=== PATIENT | female | born 1980 | race Caucasian/White ===

== ENCOUNTER 2017-09-12 10:01 | Day surgery (SDC) | END 2017-09-12 15:39 | disposition home or self-care (01) ==

== ENCOUNTER 2018-11-14 15:34 | Emergency (ER) | payer OTHER ==
[~2018-11-14] VITALS: Ht 160 cm; Wt 66.2 kg
[~2018-11-14 15:34] MED LIST: IBUP800T48 PO
[2018-11-14 15:46] VITALS: RESP 18; Ht 160 cm; Wt 66.2 kg
[2018-11-14] MEDS ORDERED: LIDOCAINE 1% (MPF) 5 ML VIAL INFIL ONE (17:00)
[2018-11-14] MEDS ORDERED: DIAZEPAM 5 MG TAB PO ONE (17:00)
[2018-11-14] MEDS ORDERED: CLINDAMYCIN 300 MG INJ IM ONE (17:00)
[2018-11-14] MEDS ORDERED: LORA-441 PO (18:18)
--- NOTE | 2018-11-14 18:22 | ERD ---
ER Documentation Chief Complaint Chief Complaint R ear discomfort with associated dizziness X 3 wks HPI 38-year-old female no significant past medical history presents for dizziness x3 weeks. She states that she has a history of right ear infection a few weeks ago was given some antibiotics which she completed. She states that she still has a right ear discomfort and popping sensation. She states that she had dizziness on and off for about 3 years. She never followed up with her primary care physician or ENT. Denies any fevers or chills. Denies chest pain or shortness of breath. Denies abdominal pain, nausea, vomiting. Patient states that she took some meclizine with only mild relief. Otherwise no other modifying factors noted, no treatments tried at home. ROS All systems reviewed and are negative except as per history of present illness. Medications Home Meds Active Scripts Lorazepam* (Ativan*) 0.5 Mg Tablet, 0.5 MG PO DAILY PRN for dizziness, #10 TAB Prov:AMARI IZAGUIRRE DO 11/14/18 Ibuprofen* (Motrin*) 800 Mg Tab, 800 MG PO Q8 PRN for PAIN AND OR ELEVATED TEMP, #30 TAB Prov:EDMUNDO CAMACHO. ACUPUNCTURIST 01/03/16 Allergies Allergies: Coded Allergies: No Known Allergy (Unverified , 08/14/14) PMhx/Soc History of Surgery: Yes (D&C) Anesthesia Reaction: No Hx Neurological Disorder: No Hx Respiratory Disorders: No Hx Cardiac Disorders: No Hx Psychiatric Problems: Yes (PTSD, ANXIETY, MAJOT DEPRESSION) Hx Miscellaneous Medical Probl: No Hx Alcohol Use: No Hx Substance Use: No Hx Tobacco Use: No Smoking Status: Never smoker Physical Exam Vitals Vital Signs Date Temp Pulse Resp B/P (MAP) Pulse Ox O2 O2 Flow FiO2 Time Delivery Rate 11/14/18 98.1 84 18 116/57 97 15:46 (76) Physical Exam Const: No acute distress Head: Atraumatic Eyes: Normal Conjunctiva ENT: Normal External Ears, Nose and Mouth. Neck: Full range of motion. No meningismus. Resp: Clear to auscultation bilaterally Cardio: Regular rate and rhythm, no murmurs, peripheral pulses intact Abd: Soft, non tender, non distended. Normal bowel sounds Skin: No petechiae or rashes Back: No midline or flank tenderness Ext: No cyanosis, or edema Neur: Awake and alert, 5 out of 5 muscle strength bilateral upper and lower extremities, upper and lower extremity sensation intact Psych: Normal Mood and Affect Result Diagram: 11/14/18 1714 11/14/18 1714 Results 24 hrs Laboratory Tests Test 11/14/18 17:14 White Blood Count 6.9 10^3/ul Red Blood Count 4.53 10^6/ul Hemoglobin 14.4 g/dl Hematocrit 41.6 % Mean Corpuscular Volume 91.8 fl Mean Corpuscular Hemoglobin 31.8 pg Mean Corpuscular Hemoglobin Concent 34.6 g/dl Red Cell Distribution Width 11.9 % Platelet Count 339 10^3/UL Mean Platelet Volume 9.4 fl Immature Granulocytes % 0.600 % Neutrophils % 59.5 % Lymphocytes % 31.0 % Monocytes % 7.0 % Eosinophils % 0.9 % Basophils % 1.0 % Nucleated Red Blood Cells % 0.0 /100WBC Immature Granulocytes # 0.040 10^3/ul Neutrophils # 4.1 10^3/ul Lymphocytes # 2.1 10^3/ul Monocytes # 0.5 10^3/ul Eosinophils # 0.1 10^3/ul Basophils # 0.1 10^3/ul Nucleated Red Blood Cells # 0.0 10^3/ul Sodium Level 141 mmol/L Potassium Level 4.4 mmol/L Chloride Level 106 mmol/L Carbon Dioxide Level 30 mmol/L Anion Gap 5 Blood Urea Nitrogen 20 mg/dl Creatinine 0.76 mg/dl Est Glomerular Filtrat Rate mL/min > 60 mL/min Glucose Level 77 mg/dl Calcium Level 9.0 mg/dl Total Bilirubin 0.3 mg/dl Direct Bilirubin 0.00 mg/dl Indirect Bilirubin 0.3 mg/dl Aspartate Amino Transf (AST/SGOT) 35 IU/L Alanine Aminotransferase (ALT/SGPT) 33 IU/L Alkaline Phosphatase 42 IU/L Total Protein 6.3 g/dl Albumin 3.8 g/dl Globulin 2.50 g/dl Albumin/Globulin Ratio 1.52 Current Medications Medications Dose Sig/Cristina Start Time Status Last (Trade) Ordered Route PRN Stop Time Admin Dose Reason Admin Clindamycin 300 mg ONCE ONCE 11/14/18 DC Phosphate IM 17:00 11/14/18 (Cleocin) 17:00 Lidocaine 5 ml ONCE ONCE 11/14/18 DC (Xylocaine INFIL 17:00 11/14/18 1% (Mpf)) 17:00 Diazepam 5 mg ONCE ONCE 11/14/18 DC 11/14/18 (Valium) PO 17:00 11/14/18 17:20 17:01 Procedures/MDM Medical Decision Making: Differential diagnosis includes but not limited to vertigo, posterior infarct, electrolyte disorder Patient appeared well on physical exam. Patient was neurovascularly intact, there is no focal neuro deficits. ED course: Patient was given valium Symptoms improved with treatment. Patient possibly has benign vertigo Prescription(s): Patient given prescription for supportive medication(s), short course low-dose Ativan. Advised not to operate heavy machinery while taking the medication, avoiding alcohol. Patient advised that she will need to follow with her ENT. Patient advised to follow up with PCP in 1-2 days. Patient advised to return to ED for new or worsening symptoms. Patient stable on discharge from the ED. Disclaimer: Inadvertent spelling and grammatical errors are likely due to EHR/dictation software use and do not reflect on the overall quality of patient care. Also, please note that the electronic time recorded on this note does not necessarily reflect the actual time of the patient encounter. Departure Diagnosis: Primary Impression: Dizziness Condition: Fair Patient Instructions: Dizziness (Vertigo) and Balance Problems: Ensuring Your Safety Referrals: [facility] YOU HAVE RECEIVED A MEDICAL SCREENING EXAM AND THE RESULTS INDICATE THAT YOU DO NOT HAVE A CONDITION THAT REQUIRES URGENT TREATMENT IN THE EMERGENCY DEPARTMENT. FURTHER EVALUATION AND TREATMENT OF YOUR CONDITION CAN WAIT UNTIL YOU ARE SEEN IN YOUR DOCTORS OFFICE WITHIN THE NEXT 1-2 DAYS. IT IS YOUR RESPONSIBILITY TO MAKE AN APPOINTMENT FOR FOLOW-UP CARE. IF YOU HAVE A PRIMARY DOCTOR --you should call your primary doctor and schedule an appointment IF YOU DO NOT HAVE A PRIMARY DOCTOR YOU CAN CALL OUR PHYSICIAN REFERRAL HOTLINE AT IF YOU CAN NOT AFFORD TO SEE A PHYSICIAN YOU CAN CHOSE FROM THE FOLLOWING [facility] [address] [facility] [address] [facility]. [facility] [address] [facility] [address] [facility] [address] [facility]. [facility] [address] Additional Instructions: Call your primary care doctor TOMORROW for an appointment during the next 1-2 days.See the doctor sooner or return here if your condition worsens before your appointment time. Follow up with ENT AMARI IZAGUIRRE DO November 14, 2018 18:22
[2018-11-14 18:54] VITALS: BP 99/60; PULSE 66
== END 2018-11-14 18:55 | disposition home or self-care (01) ==
LOC: FTE 15:34
DX: R42 Dizziness and giddiness (principal)
CPT/HCPCS: 80053; 85025; Z7502; Z7610; 99283